=== PATIENT | male | born 1950 | race Caucasian/White ===

== ENCOUNTER 2018-05-14 09:17 | Inpatient (IN) | payer OTHER ==
[~2018-05-14] VITALS: Ht 175.3 cm; Wt 102.1 kg
[~2018-05-14 09:17] MED LIST: AMARYL1 MG PO; ASPIR 8181 MG PO; BISOPROLOL FUMA10 MG PO; CELEXA40 MG PO; CLEOCIN HCL150 MG PO; COUMADIN 1MG TAB1 M1 PO; COUMADIN 5 MG TA5 M1 PO; DUONEB 2.5-0.5 M3 ML INH; HYDROCODONE-AP1 EAC6 PO; LEVAQUIN 500 M500 M2 PO; LIPITOR40 MG PO; LISINOPRIL20 MG PO; METFORMIN HCL500 MG PO; NIASPAN ER 101000 M1 PO; NORCO 5-325 TA1 EACH PO; NORVASC5 MG PO; PRAVACHOL40 MG PO; PREDNISONE 20 M20 MG PO; PSYLLIUM0.4 GM PO; TYLENOL325 MG PO
[2018-05-14 09:23] VITALS: BP 160/85
[2018-05-14 10:10] LABS: ABSOLUTE BASOPHILS 0.1 thou/uL (0.0-0.2); ABSOLUTE EOSINOPHILS 0.5 thou/uL (0.0-0.7); ABSOLUTE MONOCYTES 0.5 thou/uL (0.0-1.2); ABSOLUTE NEUTROPHILS 4.6 thou/uL (1.6-8.1); BASOPHILS 0.9 %; EOSINOPHILS 7.2 %; HEMATOCRIT 38.5 % (42.0-52.0); HEMOGLOBIN 13.3 gm/dL (14.0-18.0); LYMPHOCYTES 14.8 %; MCH 32.9 pg (26.0-34.0); MCHC 34.4 g/dL (28.0-37.0); MCV 95.6 fL (80.0-100.0); MONOCYTES 7.8 %; MPV 9.2 fl. (7.2-11.1); NUCLEATED RBCS 0 /100WBC; PLATELET COUNT* 114 thou/uL (150-400); POLYS 69.3 %; RBC 4.03 mil/uL (4.50-6.00); WBC 6.6 thou/uL (4.0-11.0)
[2018-05-14 10:22] LABS: ANION GAP 6 mmol/L (7-16); BUN 24 mg/dL (7-18); CALCIUM 8.6 mg/dL (8.5-10.1); CHLORIDE 101 mmol/L (98-107); CO2 29 mmol/L (21-32); CREATININE 1.7 mg/dL (0.6-1.3); GLUCOSE 377 mg/dL (70-99); POTASSIUM 4.8 mmol/L (3.5-5.1); SODIUM 136 mmol/L (136-145)
[2018-05-14 10:23] LABS: APTT 23.8 Seconds (25.0-31.3); PROTIME 10.7 Seconds (9.20-11.50)
[2018-05-14 10:29] LABS: ALBUMIN 3.8 g/dL (3.4-5.0); ALKALINE PHOSPHATASE 175 U/L (46-116); SGOT 16 U/L (15-37); SGPT 36 U/L (30-65); TOTAL BILIRUBIN 0.5 mg/dL (<0.1-1.0); TOTAL PROTEIN 6.7 g/dL (6.4-8.2); TROPONIN-I LEVEL <0.06 ng/mL (<0.06)
[2018-05-14 10:58] LABS: URINE BILIRUBIN NEGATIVE (Negative); URINE BLOOD NEGATIVE (Negative); URINE CLARITY CLEAR; URINE COLOR YELLOW; URINE GLUCOSE-RANDOM 3+ (Negative); URINE KETONES NEGATIVE (Negative); URINE LEUKOCYTES-REFLEX NEGATIVE (Negative); URINE NITRITE-REFLEX NEGATIVE (Negative); URINE PROTEIN NEGATIVE (Negative); URINE SPECIFIC GRAVITY 1.015 (1.005-1.030); URINE UROBILINOGEN 0.2 E.U./dl (0.2-1.0)
[2018-05-14 15:32] VITALS: BP 132/67
--- NOTE | 2018-05-14 18:00 | EKG ---
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 /EPI
[2018-05-14 20:00] VITALS: BP 145/91
[2018-05-15] VITALS: BP 130/76
[2018-05-15 04:00] VITALS: BP 149/91
[2018-05-15 04:06] LABS: GLYCOHEMOGLOBIN (HGB A1C) 8.1 % (4.8-5.6)
[2018-05-15 05:08] LABS: HEMATOCRIT 36.9 % (42.0-52.0); HEMOGLOBIN 12.5 gm/dL (14.0-18.0); MCH 32.8 pg (26.0-34.0); MCV 96.6 fL (80.0-100.0); MPV 9.8 fl. (7.2-11.1); RBC 3.82 mil/uL (4.50-6.00); RDW-CV 14.1 % (10.5-14.5); WBC 7.1 thou/uL (4.0-11.0)
[2018-05-15 05:24] LABS: CALCIUM 8.2 mg/dL (8.5-10.1); CREATININE 1.5 mg/dL (0.6-1.3); MAGNESIUM 1.5 mg/dL (1.8-2.4); POTASSIUM 4.3 mmol/L (3.5-5.1)
[2018-05-15 08:04] VITALS: BP 126/78
[2018-05-15 12:06] VITALS: BP 141/77
[2018-05-15] MEDS ORDERED: AMARYL4 MG PO (12:07)
[2018-05-15 13:16] VITALS: BP 141/77
--- NOTE | 2018-05-18 08:12 | CON ---
[address] [address] CONSULTATION Name: LINDA TUTTLE NADIYA Room: [address] IN .R.#: [id number] Admission: 05/14/18 Attend Phys: Mony Vergara MD Discharge: 05/15/18 Date of : 46 Report #: [id number] THIS REPORT FOR: //name// CC: Brandyn Smith NP DATE OF SERVICE: 05/14/2018 HISTORY OF PRESENT ILLNESS: The patient is a 67-year-old white male who was brought to the emergency room today after his blood sugar was noted to be elevated. The patient has a long history of heart disease. He apparently presented with heart block back in 2006 at [facility]. He apparently underwent implantation of a pacemaker. He apparently had a heart catheterization at that time and was found to have no significant coronary artery disease. He has been followed by Dr. Reynolds at [facility]. He apparently had a stress test a year ago. He is not very active at this time because of chronic hip pain. The patient recently has noticed some fatigue. He went to see his nurse practitioner 3 days ago. Blood work returned and he was noted to have elevated blood sugar. He was told to come to the emergency room today. He does have occasional chest pain. He does get short of breath when he exerts himself. He has had no syncope. PAST MEDICAL HISTORY: Significant for no other major surgical procedures. He has a long history of hypertension and diabetes. CURRENT MEDICATIONS: Consist of lisinopril, metformin, glimepiride, amlodipine, bisoprolol, and atorvastatin. ALLERGIES: He has no known drug allergies. FAMILY HISTORY: Positive for heart disease. SOCIAL HISTORY: He is . He and his live in [place]. 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 No smoking or alcohol abuse. REVIEW OF SYSTEMS: He has had no history of stroke. He does have asthma and uses a nebulizer. He has no history of peptic ulcer disease or liver disease. No history of chronic kidney disease. No cancer. No psychiatric illness. PHYSICAL EXAMINATION: GENERAL: Revealed an elderly male, lying in a stretcher, he appeared in no acute distress. VITAL SIGNS: He had a blood pressure of 120/80, pulse 70, and he is afebrile. HEENT: He was anicteric. Conjunctivae are pink. Mucous membranes are moist. NECK: Veins nondistended. No carotid bruits[place] [address] CONSULTATION Name: LINDA TUTTLE Room: [address]#: [id number] Admission: 05/14/18 Attend Phys: Mony Vergara MD Discharge: 05/15/18 Date of : 46 Report #: [id number] CHEST: Clear to auscultation. HEART: Regular rate and rhythm. ABDOMEN: Soft, nontender. EXTREMITIES: Had no edema. Dorsalis pedis pulse 2+ bilaterally. SKIN: Warm, dry. NEUROLOGIC: Nonfocal. LABORATORY DATA: His ECG shows what appears to represent a sinus rhythm with a right bundle-branch block. His workup, he had an echocardiogram done in July 2017, basically 8 months ago that showed an ejection fraction of 60% with left atrial enlargement. He had a nuclear stress test done last July, 8 months ago that showed no ischemia or infarction with ejection fraction of 70% and felt to represent a low-risk study. IMPRESSION AND RECOMMENDATIONS: 1. Diabetes. Appears uncontrolled at this time. 2. Hypertension. The patient has been on GLENDA inhibitor, calcium juan, and beta juan. 3. Diabetes. 4. Hyperlipidemia. The patient is on a statin drug. 5. History of atrial fibrillation. The patient has been on warfarin in the past. 6. Sick sinus syndrome. The patient has a pacemaker in place. 7. Chronic hip pain. 8. Chronic kidney disease. Creatinine today is noted to be 1.7. <ELECTRONICALLY SIGNED> By: Gurmeet Adams MD, [facility] 05/18/18 0812 1433 1916Gurmeet Adams MD, [facility] /nt
== END 2018-05-15 14:16 | disposition home or self-care (01) | DRG 638 ==
LOC: M.ERS 09:17 → M.TBA-ER 11:58 → M.2W 11:58
PROVIDERS: Emergency Medicine; ADMIT Internal Medicine
DX: E11.00 Type 2 diabetes mellitus with hyperosmolarity without nonketotic hyperglycemic-hyperosmolar coma (NKHHC) (principal); D68.59 Other primary thrombophilia; I49.5 Sick sinus syndrome; E66.01 Morbid (severe) obesity due to excess calories; M19.90 Unspecified osteoarthritis, unspecified site; I48.91 Unspecified atrial fibrillation; F17.220 Nicotine dependence, chewing tobacco, uncomplicated; I12.9 Hypertensive chronic kidney disease with stage 1 through stage 4 chronic kidney disease, or unspecified chronic kidney disease; G89.29 Other chronic pain; E11.22 Type 2 diabetes mellitus with diabetic chronic kidney disease; M25.559 Pain in unspecified hip; E78.5 Hyperlipidemia, unspecified; E11.65 Type 2 diabetes mellitus with hyperglycemia; N18.3 Chronic kidney disease, stage 3 (moderate); Z68.33 Body mass index [BMI] 33.0-33.9, adult; Z95.0 Presence of cardiac pacemaker; Z98.42 Cataract extraction status, left eye; Z98.41 Cataract extraction status, right eye; Z82.49 Family history of ischemic heart disease and other diseases of the circulatory system

== ENCOUNTER 2019-02-17 18:05 | Emergency (ER) | payer OTHER ==
[~2019-02-17] VITALS: Ht 175.3 cm; Wt 102.1 kg
[~2019-02-17 18:05] MED LIST changes: +AMARYL4 MG PO
[2019-02-17 18:27] LABS: URINE BILIRUBIN NEGATIVE (Negative); URINE BLOOD NEGATIVE (Negative); URINE CLARITY CLEAR; URINE COLOR STRAW; URINE GLUCOSE-RANDOM 3+ (Negative); URINE KETONES NEGATIVE (Negative); URINE LEUKOCYTES-REFLEX NEGATIVE (Negative); URINE NITRITE-REFLEX NEGATIVE (Negative); URINE PROTEIN NEGATIVE (Negative); URINE UROBILINOGEN 0.2 E.U./dl (0.2-1.0)
[2019-02-17 18:31] LABS: ABSOLUTE EOSINOPHILS 0.4 thou/uL (0.0-0.7); ABSOLUTE LYMPHOCYTES 1.2 thou/uL (0.8-5.3); ABSOLUTE MONOCYTES 0.6 thou/uL (0.0-1.2); ABSOLUTE NEUTROPHILS 5.3 thou/uL (1.6-8.1); BASOPHILS 0.5 %; EOSINOPHILS 4.8 %; HEMATOCRIT 40.8 % (42.0-52.0); HEMOGLOBIN 13.8 gm/dL (14.0-18.0); LYMPHOCYTES 16.4 %; MCH 31.8 pg (26.0-34.0); MCHC 33.8 g/dL (28.0-37.0); MCV 94.1 fL (80.0-100.0); MONOCYTES 8.5 %; MPV 10.4 fl. (7.2-11.1); NUCLEATED RBCS 0 /100WBC; PLATELET COUNT* 147 thou/uL (150-400); POLYS 69.8 %; RBC 4.33 mil/uL (4.50-6.00); RDW-CV 13.9 % (10.5-14.5); WBC 7.6 thou/uL (4.0-11.0)
[2019-02-17 18:39] LABS: CALCIUM 9.1 mg/dL (8.5-10.1); CREATININE 1.7 mg/dL (0.6-1.3); POTASSIUM 4.5 mmol/L (3.5-5.1)
[2019-02-17 18:43] LABS: ALBUMIN 3.8 g/dL (3.4-5.0); TOTAL BILIRUBIN 0.4 mg/dL (<0.1-1.0); TOTAL PROTEIN 6.8 g/dL (6.4-8.2)
[2019-02-17 20:16] VITALS: BP 169/94
--- NOTE | 2019-02-18 15:04 | EKG ---
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 02/18/19 1504 49 49 Brandyn Koroma MD, [facility] /EPI
== END 2019-02-17 20:17 | disposition home or self-care (01) ==
LOC: M.ERS 18:05
PROVIDERS: Physician Assistant
DX: E11.65 Type 2 diabetes mellitus with hyperglycemia (principal); F41.9 Anxiety disorder, unspecified; F17.220 Nicotine dependence, chewing tobacco, uncomplicated; M19.90 Unspecified osteoarthritis, unspecified site; I10 Essential (primary) hypertension; I48.91 Unspecified atrial fibrillation; Z95.0 Presence of cardiac pacemaker